=== PATIENT | born 1970 | race African-American/Black ===

== ENCOUNTER 2024-05-16 04:06 | Inpatient (IN) | payer OTHER ==
[~2024-05-16] VITALS: Ht 188 cm; Wt 134.6 kg
[2024-05-16 05:10] LABS: EOSINOPHILS % (AUTO) 1.1 % (1.0-6.0); HEMATOCRIT 40.8 % (41-53); HEMOGLOBIN 13.1 g/dL (13.5-17.5); LYMPHOCYTES # (AUTO) 1.7 K/uL (2.0-11.5); LYMPHOCYTES % (AUTO) 31.8 % (21.0-34.0); MEAN CORPUSCULAR HEMOGLOBIN 26.4 pg (31.0-37.0); MEAN CORPUSCULAR VOLUME 83 fL (95-121); MONOCYTES # (AUTO) 0.4 K/uL (0.1-1.0); MONOCYTES % (AUTO) 7.9 % (2.0-9.0); NEUTROPHILS % (AUTO) 58.2 % (53.0-62.0); PLATELET COUNT (AUTO) 218 K/uL (150-450); RED BLOOD CELL COUNT(AUTO) 4.95 MIL/uL (4.00-6.60); RED CELL DISTRIBUTION WIDTH 14.3 % (11.5-14.5); WHITE BLOOD COUNT (AUTO) 5.2 K/uL (4.5-11.0)
[2024-05-16 05:36] LABS: ANION GAP 7 mmol/L (8-16); CALCIUM, TOTAL 9.6 mg/dL (8.8-10.5); CARBON DIOXIDE 28 mmol/L (22-29); CHLORIDE 104 mmol/L (98-107); CREATININE 0.75 mg/dL (0.60-1.30); GLOMERULAR FILTR. RATE CALC > 60 mL/min; GLUCOSE,RANDOM 167 mg/dL (70-110); POTASSIUM 4.6 mmol/L (3.5-5.1); SODIUM SERUM 139 mmol/L (136-145); UREA NITROGEN, BLOOD 14 mg/dL (7-18)
[2024-05-16] MEDS: TraMADol HCL 50 MG TABLET PO ONE (05:59)
[2024-05-16] MEDS: SODIUM CHLORIDE 0.9% 1,000 ML IV ONE ×2 (06:46→09:48)
[2024-05-16] MEDS: MORPHINE SULFATE 2 MG/ML SYRINGE IVP ONE (06:47)
[2024-05-16 08:30] VITALS: BP 146/96; PULSE 87; RESP 20; TEMP 97.7; O2SAT 99
[2024-05-16] MEDS: MORPHINE SULFATE 2 MG/ML SYRINGE IVP PRN (09:46)
[2024-05-16] MEDS: FAMOTIDINE 20 MG TABLET PO SCH (09:46)
[2024-05-16] MEDS: TAMSULOSIN HCL 0.4 MG CAPSULE PO SCH (09:47)
[2024-05-16] MEDS ORDERED: SODIUM CL IRRIG SOLN BOTTLE 250 ML IRRIG ONE ×2 (10:06→12:56)
[2024-05-16] MEDS: ACETAMINOPHEN 325 MG TABLET PO PRN (11:50)
[2024-05-16] MEDS ORDERED: SODIUM CHLORIDE 0.9% IRRIG BTL 1,000 ML IRRIG ONE (13:01)
[2024-05-16] MEDS: LIDOCAINE 2% 6 ML JELLY TP ONE (13:19)
[2024-05-16] MEDS ORDERED: OXCA300T70 PO (16:43)
[2024-05-16] MEDS ORDERED: DEXTROSE 50%-WATER 25 GM/50 ML SYRINGE IVP PRN (17:15)
[2024-05-16 17:19] VITALS: BP 144/76; RESP 20; O2SAT 100
[2024-05-16] MEDS: LISINOPRIL 10 MG TABLET PO SCH (17:52)
[2024-05-16] MEDS: INSULIN LISPRO 100 UNITS/ML SQ PRN (17:53)
[2024-05-16 19:01] LABS: GLUCOMETER DEV NAME(LOC) 6S.2; GLUCOSE,POINT OF CARE 235 MG/DL (70-110)
[2024-05-16 20:12] VITALS: BP 136/70; PULSE 83; RESP 19; TEMP 98.2; O2SAT 96
[2024-05-16] MEDS: OXcarbazepine 300 MG TABLET PO SCH (20:34)
[2024-05-16 22:36] LABS: GLUCOMETER DEV NAME(LOC) 6N.2B; GLUCOSE,POINT OF CARE 270 MG/DL (70-110)
[2024-05-17 06:48] VITALS: BP 142/86; PULSE 73; RESP 19; TEMP 98.1; O2SAT 99
[2024-05-17 08:00] VITALS: BP 126/79; PULSE 72; RESP 18; TEMP 97.9; O2SAT 99
[2024-05-17 10:05] LABS: GLUCOMETER DEV NAME(LOC) 6S.1D; GLUCOSE,POINT OF CARE 212 MG/DL (70-110)
[2024-05-17 14:46] LABS: BASOPHILS % (AUTO) 0.9 % (0.0-2.0); EOSINOPHILS % (AUTO) 1.7 % (1.0-6.0); HEMOGLOBIN 11.9 g/dL (13.5-17.5); LYMPHOCYTES # (AUTO) 1.4 K/uL (2.0-11.5); MEAN CORPUSCULAR HEMOGLOBIN 26.5 pg (31.0-37.0); MEAN CORPUSCULAR HGB CONC 32.2 G/dL (29.0-37.0); MEAN CORPUSCULAR VOLUME 82 fL (95-121); MONOCYTES # (AUTO) 0.3 K/uL (0.1-1.0); MONOCYTES % (AUTO) 6.3 % (2.0-9.0); NEUTROPHILS # (AUTO) 2.6 K/uL (5.0-21.0); NEUTROPHILS % (AUTO) 59.1 % (53.0-62.0); PLATELET COUNT (AUTO) 207 K/uL (150-450); RED BLOOD CELL COUNT(AUTO) 4.51 MIL/uL (4.00-6.60); RED CELL DISTRIBUTION WIDTH 14.8 % (11.5-14.5); WHITE BLOOD COUNT (AUTO) 4.5 K/uL (4.5-11.0)
[2024-05-17 14:56] LABS: ANION GAP 5 mmol/L (8-16); CALCIUM, TOTAL 8.9 mg/dL (8.8-10.5); CARBON DIOXIDE 27 mmol/L (22-29); CHLORIDE 104 mmol/L (98-107); CREATININE 0.86 mg/dL (0.60-1.30); GLOMERULAR FILTR. RATE CALC > 60 mL/min; GLUCOSE,RANDOM 269 mg/dL (70-110); POTASSIUM 3.7 mmol/L (3.5-5.1); SODIUM SERUM 136 mmol/L (136-145); UREA NITROGEN, BLOOD 11 mg/dL (7-18)
[2024-05-17 17:01] LABS: APPEARANCE,URINE HAZY (CLEAR); BILIRUBIN,URINE NEGATIVE (NEGATIVE); COLOR,URINE LIGHT ORANGE (YELLOW); GLUCOSE, URINE (UA) >=1000 mg/dL (NEGATIVE); KETONES,URINE NEGATIVE (NEGATIVE); LEUKOCYTE ESTERASE ,URINE LARGE (NEGATIVE); NITRATE,URINE NEGATIVE (NEGATIVE); OCCULT BLOOD,URINE LARGE (NEGATIVE); PH,URINE 6.5 (5.0-8.0); PROTEIN,URINE TRACE mg/dL (NEGATIVE); SPECIFIC GRAVITIY, URINE 1.014 (1.003-1.030); UROBILINOGEN,URINE <=1.0 mg/dL (<=1.0)
[2024-05-17 17:14] LABS: BACTERIA,URINE Few /HPF (None Seen); RBC,URINE >100 /HPF (0-2); SQUAMOUS EPITHELIAL CELL,UR Rare /LPF (None Seen)
[2024-05-17 17:40] LABS: GLUCOMETER DEV NAME(LOC) 6N.2B; GLUCOSE,POINT OF CARE 289 MG/DL (70-110)
[2024-05-17 19:35] VITALS: BP 120/81; PULSE 83; RESP 18; TEMP 98.2; O2SAT 98
[2024-05-18 03:36] LABS: GLUCOMETER DEV NAME(LOC) 6S.2; GLUCOSE,POINT OF CARE 194 MG/DL (70-110)
[2024-05-18 08:53] VITALS: BP 125/74; PULSE 63; RESP 18; TEMP 97.7; O2SAT 98
[2024-05-18] MEDS ORDERED: SODIUM CHLORIDE 0.9% 500 ML IV ONE (10:25)
[2024-05-18] MEDS: CefTRIAXone 1 GM/DEXTROSE 50 ML IV SCH (10:44)
[2024-05-18] MEDS: MetFORMIN HCL 500 MG TABLET PO SCH (10:44)
[2024-05-18] MEDS ORDERED: SODIUM CHLORIDE 0.9% IRRIG BTL 1,000 ML IRRIG ONE (12:29)
[2024-05-18 20:09] VITALS: BP 124/73; PULSE 79; RESP 20; TEMP 97.2; O2SAT 98
[2024-05-18 20:35] LABS: GLUCOMETER DEV NAME(LOC) 6S.1D; GLUCOSE,POINT OF CARE 292 MG/DL (70-110)
[2024-05-18 20:35] LABS: GLUCOMETER DEV NAME(LOC) 6S.1D; GLUCOSE,POINT OF CARE 234 MG/DL (70-110)
[2024-05-18 22:28] LABS: BASOPHILS % (AUTO) 0.9 % (0.0-2.0); EOSINOPHILS % (AUTO) 2.6 % (1.0-6.0); HEMATOCRIT 37.2 % (41-53); HEMOGLOBIN 11.8 g/dL (13.5-17.5); LYMPHOCYTES # (AUTO) 1.5 K/uL (2.0-11.5); LYMPHOCYTES % (AUTO) 35.5 % (21.0-34.0); MEAN CORPUSCULAR HEMOGLOBIN 26.3 pg (31.0-37.0); MEAN CORPUSCULAR HGB CONC 31.8 G/dL (29.0-37.0); MEAN CORPUSCULAR VOLUME 83 fL (95-121); MONOCYTES # (AUTO) 0.4 K/uL (0.1-1.0); MONOCYTES % (AUTO) 8.8 % (2.0-9.0); NEUTROPHILS # (AUTO) 2.2 K/uL (5.0-21.0); NEUTROPHILS % (AUTO) 52.2 % (53.0-62.0); PLATELET COUNT (AUTO) 203 K/uL (150-450); RED CELL DISTRIBUTION WIDTH 14.9 % (11.5-14.5); WHITE BLOOD COUNT (AUTO) 4.3 K/uL (4.5-11.0)
[2024-05-19 02:05] LABS: GLUCOMETER DEV NAME(LOC) 6S.2; GLUCOSE,POINT OF CARE 203 MG/DL (70-110)
[2024-05-19 02:05] LABS: GLUCOMETER DEV NAME(LOC) 6S.2; GLUCOSE,POINT OF CARE 207 MG/DL (70-110)
[2024-05-19 02:05] LABS: GLUCOMETER DEV NAME(LOC) 6S.2; GLUCOSE,POINT OF CARE 251 MG/DL (70-110)
[2024-05-19 05:47] VITALS: BP 133/72; PULSE 88; RESP 19; TEMP 97.5; O2SAT 99
[2024-05-19 08:24] VITALS: BP 122/84; PULSE 71; RESP 18; TEMP 98.2; O2SAT 99
[2024-05-19] MEDS: DOCUSATE SODIUM 100 MG CAPSULE PO SCH (09:45)
[2024-05-19] MEDS: OXYBUTYNIN CHLORIDE 5 MG TABLET PO PRN (10:00)
[2024-05-19] MEDS: MAGNESIUM HYDROXIDE SUSPENSION 30 ML UDCUP PO PRN (10:00)
[2024-05-19 19:05] LABS: GLUCOMETER DEV NAME(LOC) 6S.1D; GLUCOSE,POINT OF CARE 163 MG/DL (70-110)
[2024-05-19 19:05] LABS: GLUCOMETER DEV NAME(LOC) 6S.1D; GLUCOSE,POINT OF CARE 215 MG/DL (70-110)
[2024-05-19 20:00] VITALS: BP 117/68; PULSE 56; RESP 18; TEMP 97.3; O2SAT 96
[2024-05-19 21:16] LABS: GLUCOMETER DEV NAME(LOC) 6S.1D; GLUCOSE,POINT OF CARE 225 MG/DL (70-110)
[2024-05-20 08:05] VITALS: BP 119/83; PULSE 78; RESP 18; TEMP 97.7; O2SAT 96
[2024-05-20] MEDS ORDERED: CIPR500T10 PO (10:31)
[2024-05-20] MEDS ORDERED: FAMO20 PO (10:32)
[2024-05-20] MEDS ORDERED: DOCU-385 PO (10:32)
[2024-05-20] MEDS ORDERED: LISI-893 PO (10:33)
[2024-05-20] MEDS ORDERED: METF-1211 PO (10:33)
[2024-05-20] MEDS ORDERED: ACET-2247 PO (10:34)
[2024-05-20] MEDS ORDERED: TAMS0.4C94 PO (10:34)
[2024-05-20] MEDS ORDERED: INSU100V SQ (10:36)
[2024-05-20] MEDS ORDERED: MAGN-169 PO (10:37)
[2024-05-20] MEDS ORDERED: OXYB-34 PO (10:37)
[2024-05-20 17:35] LABS: GLUCOMETER DEV NAME(LOC) 6S.1D; GLUCOSE,POINT OF CARE 162 MG/DL (70-110)
[2024-05-20 17:35] LABS: GLUCOMETER DEV NAME(LOC) 6S.1D; GLUCOSE,POINT OF CARE 144 MG/DL (70-110)
[2024-05-20] MEDS ORDERED: CIPROFLOXACIN HCL 500 MG TABLET PO SCH (21:00)
== END 2024-05-20 19:29 | DRG 690 ==
LOC: EDSEX 04:20 → EMS 04:20 → EDH 06:17 → 6S 08:56
PROVIDERS: ADMIT Internal Medicine; ATTEND Internal Medicine
PROC: 3C1ZX8Z Irrigation of Indwelling Device using Irrigating Substance, External Approach (ICD-10-PCS; principal; 2024-05-16)
DX: N39.0 Urinary tract infection, site not specified (principal); R31.0 Gross hematuria; E66.01 Morbid (severe) obesity due to excess calories; Z68.38 Body mass index [BMI] 38.0-38.9, adult; E11.9 Type 2 diabetes mellitus without complications; N40.1 Benign prostatic hyperplasia with lower urinary tract symptoms; F99 Mental disorder, not otherwise specified; E78.5 Hyperlipidemia, unspecified; G47.33 Obstructive sleep apnea (adult) (pediatric)
CPT/HCPCS: 74176; 80048; 81001; 82962; 85025; 87086; 96361; 96374; 96375; 99285; J0696; J2270; J7030; J7040; 36415-L1; 36415-TC